=== PATIENT | female | born 1990 ===

== ENCOUNTER 2021-11-07 15:51 | Observation (INO) | payer OTHER ==
[~2021-11-07] VITALS: Ht 167.6 cm; Wt 77.0 kg
--- NOTE | 2021-11-08 08:27 | NUR ---
Pt. states that she is not having any vaginal bleeding this morning. Denies having pain.
--- NOTE | 2021-11-08 17:12 | NUR ---
D/C INSTRUCTIONS GIVEN, ALL QUESTIONS ANSWERED. PT FEELS SAFE GOING HOME. BETAMETHASONE INJ GIVEN.
== END 2021-11-08 17:15 | disposition home or self-care (01) ==
LOC: OBS 15:51 → BC 15:51 → OBS 16:01 → BC 16:04
PROVIDERS: ADMIT Obstetrics & Gynecology
DX: O46.93 Antepartum hemorrhage, unspecified, third trimester (principal); O32.1XX0 Maternal care for breech presentation, not applicable or unspecified; O26.893 Other specified pregnancy related conditions, third trimester; Z67.41 Type O blood, Rh negative; Z3A.28 28 weeks gestation of pregnancy
CPT/HCPCS: J0702; J2791

== ENCOUNTER 2021-11-20 07:01 | Inpatient (IN) | payer OTHER ==
[~2021-11-20] VITALS: Ht 167.6 cm; Wt 77.3 kg
[2021-11-20 08:18] LABS: BASOPHILS ABSOLUTE AUTO 0.04 K/mm3 (0.00-0.23); BASOPHILS PERCENT AUTO 0 % (0-2); EOSINOPHILS PERCENT AUTO 1 % (0-6); Hematocrit 37.4 % (33.0-51.0); Hemoglobin 12.3 g/dL (11.5-16.0); IMMATURE GRAN ABSOLUTE AUTO 0.07 K/mm3 (0.00-0.10); IMMATURE GRAN PERCENT AUTO 1 % (0-1); LYMPHOCYTES ABSOLUTE AUTO 1.48 K/mm3 (0.84-5.20); LYMPHOCYTES PERCENT AUTO 12 % (21-46); MONOCYTES PERCENT AUTO 8 % (4-13); Mean Corpuscular HGB 28.5 pg (26.0-34.0); Mean Corpuscular HGB Conc 32.9 g/dL (31.5-36.5); Mean Corpuscular Volume 87 fL (80-100); Mean Platelet Volume 10.7 fL (9.1-12.4); NEUTROPHILS ABSOLUTE AUTO 9.72 K/mm3 (1.96-9.15); NEUTROPHILS PERCENT AUTO 78 % (41-73); Platelet Count 191 K/mm3 (150-400); RDW Coefficient Variation 13.3 % (11.7-14.2); RDW Standard Deviation 42.5 fL (35.1-46.3); Red Blood Cell Count 4.31 M/mm3 (3.80-5.20); White Blood Cell Count 12.41 K/mm3 (4.00-11.30)
[2021-11-20] MEDS ORDERED: CEPH500 PO (18:05)
[2021-11-20] MEDS ORDERED: PRENATAL TABLE1 EAC2 PO (18:05)
--- NOTE | 2021-11-21 07:00 | NUR ---
REPORT TO PIPO GOMEZ. PT CONTINUES TO HAVE SOME RED SPOTTING, THOUGH DECREASING OVERNIGHT. NO CRAMPING OR CONTRACTIONS REPORTED. PT CONTINUES TO REPORT MOVEMENT.
--- NOTE | 2021-11-21 14:53 | NUR ---
pt up to brp. small amount of pink mucous noted on tissue when wiping. pt reports this is about the same or less than earlier. very small red mucous noted in urine
--- NOTE | 2021-11-21 14:55 | NUR ---
pt denies any cramping
--- NOTE | 2021-11-21 18:10 | NUR ---
pt c/o same low cramping she did at 1545 when put back on efm. no regular u/c noted at that time. pt states low cramping seems to be getting less intense after tylenol. Offered to put pt back on EFM if she felt it was u/c. pt declined stating she doesn't feel any tightening of the uterus. no c/o of increased bloody show or bleeding
--- NOTE | 2021-11-22 08:36 | NUR ---
PT JUST FINISHED BREAKFAST. TO [facility] FOR MONITORING. DENIES ANY CRAMPING OR U/C. DENIES PAIN. PT REPORTS INCREASED BLOODY SHOW LAST NIGHT. DOES THINK IT IS ALSO ABOUT THE TIME SHE HAD BM X 2. TISSUE IN BATHROOM DOES SHOW RED TINGED MUCOUS D/C. PT REPORTS SHE ONLY SEES IT WHEN SHE WIPES. PT WEARING A PAD BUT NEVER SEES ANY BLOOD ON HER PAD. FETUS ACTIVE THIS MORNING.
--- NOTE | 2021-11-22 09:44 | NUR ---
PT NOTED TO HAVE HER FIRST PAD WITH SMALL AMOUNT OF BLOODY SHOW. THIS WAS BEFORE USING BRP. UPDATE TO DR. FAIRCHILD. PLAN TO CONTINUE TO MONITOR AND OBSERVE AND PLAN TO FINISH 5 DAYS OF ANTIBIOTICS FOR TX OF UTI
--- NOTE | 2021-11-22 14:04 | NUR ---
PT CALLED WITH C/O A SMALL AMOUNT OF RED MUCOUS D/C WHEN UP TO BRP. PT DENIES CRAMPING OR ANY U/CS.
--- NOTE | 2021-11-22 17:02 | NUR ---
PT REPORTS NO FURTHER BLOODY SHOW THIS AFTERNOON
--- NOTE | 2021-11-22 17:04 | NUR ---
PT REQUESTS TYLENOL FOR LOW ABD ACHING. DENIES CRAMPING OR UC. REPORTS FETUS ACTIVE AND C/O ROUND LIGAMENT PAIN
[2021-11-23 03:09] LABS: BASOPHILS ABSOLUTE AUTO 0.04 K/mm3 (0.00-0.23); BASOPHILS PERCENT AUTO 0 % (0-2); EOSINOPHILS ABSOLUTE AUTO 0.16 K/mm3 (0.00-0.68); EOSINOPHILS PERCENT AUTO 1 % (0-6); Hematocrit 44.4 % (33.0-51.0); Hemoglobin 14.6 g/dL (11.5-16.0); IMMATURE GRAN ABSOLUTE AUTO 0.04 K/mm3 (0.00-0.10); IMMATURE GRAN PERCENT AUTO 0 % (0-1); LYMPHOCYTES ABSOLUTE AUTO 2.02 K/mm3 (0.84-5.20); LYMPHOCYTES PERCENT AUTO 18 % (21-46); MONOCYTES ABSOLUTE AUTO 1.16 K/mm3 (0.16-1.47); MONOCYTES PERCENT AUTO 10 % (4-13); Mean Corpuscular HGB 28.4 pg (26.0-34.0); Mean Corpuscular HGB Conc 32.9 g/dL (31.5-36.5); Mean Corpuscular Volume 86 fL (80-100); Mean Platelet Volume 10.7 fL (9.1-12.4); NEUTROPHILS ABSOLUTE AUTO 8.11 K/mm3 (1.96-9.15); NEUTROPHILS PERCENT AUTO 70 % (41-73); Platelet Count 204 K/mm3 (150-400); RDW Coefficient Variation 13.2 % (11.7-14.2); RDW Standard Deviation 41.4 fL (35.1-46.3); Red Blood Cell Count 5.14 M/mm3 (3.80-5.20); White Blood Cell Count 11.53 K/mm3 (4.00-11.30)
== END 2021-11-23 04:17 | disposition short-term general hospital (02) | DRG 833 ==
LOC: BC 07:01 → OBS 07:01 → BC 07:03 → OBS 11:12 → BC 11:16
PROVIDERS: ADMIT Obstetrics & Gynecology
DX: O46.8X3 Other antepartum hemorrhage, third trimester (principal); Z3A.30 30 weeks gestation of pregnancy; Z98.890 Other specified postprocedural states; Z79.899 Other long term (current) drug therapy
CPT/HCPCS: 36415; 59025; 85025; 86850; 86870; 86900; 86901; A9270; J0690; J3475; J7120

== ENCOUNTER 2022-11-07 16:58 | Emergency (ER) | payer OTHER ==
[~2022-11-07] VITALS: Ht 167.6 cm; Wt 77.1 kg
[~2022-11-07 16:58] MED LIST: CEPH500 PO; PRENATAL TABLE1 EAC2 PO
[2022-11-07 17:50] LABS: BASOPHILS ABSOLUTE AUTO 0.03 K/mm3 (0.00-0.23); BASOPHILS PERCENT AUTO 0 % (0-2); EOSINOPHILS ABSOLUTE AUTO 0.05 K/mm3 (0.00-0.68); EOSINOPHILS PERCENT AUTO 1 % (0-6); IMMATURE GRAN ABSOLUTE AUTO 0.03 K/mm3 (0.00-0.10); IMMATURE GRAN PERCENT AUTO 0 % (0-1); LYMPHOCYTES ABSOLUTE AUTO 1.97 K/mm3 (0.84-5.20); LYMPHOCYTES PERCENT AUTO 22 % (21-46); MONOCYTES ABSOLUTE AUTO 0.61 K/mm3 (0.16-1.47); MONOCYTES PERCENT AUTO 7 % (4-13); Mean Corpuscular HGB 28.3 pg (26.0-34.0); Mean Corpuscular HGB Conc 32.5 g/dL (31.5-36.5); Mean Corpuscular Volume 87 fL (80-100); Mean Platelet Volume 10.3 fL (9.1-12.4); NEUTROPHILS ABSOLUTE AUTO 6.49 K/mm3 (1.96-9.15); NEUTROPHILS PERCENT AUTO 71 % (41-73); Platelet Count 254 K/mm3 (150-400); RDW Coefficient Variation 13.4 % (11.7-14.2); White Blood Cell Count 9.18 K/mm3 (4.00-11.30)
[2022-11-07 18:27] LABS: Bun/Creatinine Ratio 13.4 (12.0-20.0); Calcium, Blood 9.8 mg/dL (8.5-10.1); Creatinine, Blood 0.6 mg/dL (0.40-1.00); Potassium, Blood 3.6 mmol/L (3.5-5.5)
[2022-11-07 19:06] VITALS: BP 122/86
[2022-11-07 19:29] LABS: Source, Urine Clean Catch
[2022-11-07 19:36] LABS: Appearance, Urine Clear (Clear); Bilirubin, Urine Neg (Neg); Blood, Urine 5+ (Neg); Glucose Qualitative, Urine Neg (Neg); Ketones, Urine Neg (Neg); Leukocyte Esterase, Urine Neg (Neg); Nitrite, Urine Neg (Neg); Protein, Urine Neg (Neg); Specific Gravity, Urine 1.015 (1.003-1.022); Urobilinogen, Urine NORM (Normal)
[2022-11-07 19:47] LABS: Color, Urine Pale Yellow (P-Yellow)
[2022-11-07 19:48] LABS: Bacteria Few /hpf; Squamous Epithelial Cells Few /hpf (Few); White Blood Cells, Urine 0-2 /hpf (0-5)
== END 2022-11-07 21:33 | disposition home or self-care (01) ==
LOC: ER 16:58
PROVIDERS: Physician Assistant
DX: O20.0 Threatened abortion (principal); Z3A.13 13 weeks gestation of pregnancy; Z79.899 Other long term (current) drug therapy
CPT/HCPCS: 76801; 76817; 80048; 81001; 84702; 85025; 96372; 99284-25; J2791

== ENCOUNTER 2024-08-06 07:26 | Inpatient (IN) | payer OTHER ==
[~2024-08-06] VITALS: Ht 167.6 cm; Wt 86.0 kg
[2024-08-06] VITALS (54 sets, daily range): BP systolic 83–139; BP diastolic 42–80
[2024-08-06] MEDS ORDERED: Oxytocin 10 Unit / ML Vial IM PRN (07:55)
[2024-08-06] MEDS ORDERED: FentaNYL 2mcg/ml-Bup 0.1% Epd 250 ML EPI PRN (07:55)
[2024-08-06] MEDS ORDERED: Acetaminophen 500 MG Tab PO PRN (07:55)
[2024-08-06] MEDS ORDERED: Misoprostol 200 MCG Tab PR PRN ×2 (07:55→14:05)
[2024-08-06] MEDS ORDERED: Misoprostol 200 MCG Tab BC PRN (07:55)
[2024-08-06] MEDS ORDERED: ePHEDrine Sulfate 50 MG/ML 1ML Injection XX PRN (07:55)
[2024-08-06] MEDS ORDERED: Calcium Carbonate 500 MG Tab Chew PO SCH (07:55)
[2024-08-06] MEDS ORDERED: Methylergonovine Maleate 0.2MG / ML 1ML Amp IM PRN ×2 (07:55→14:05)
[2024-08-06] MEDS ORDERED: OXYTOCIN/RINGER'S LACTATE 500 ML IV PRN (07:55)
[2024-08-06] MEDS ORDERED: Lactated Ringer's 1,000 ML IV SCH ×3 (07:55→14:05)
[2024-08-06] MEDS ORDERED: Carboprost Tromethamine 250 MCG/ML 1ML Amp IM PRN (07:55)
[2024-08-06] MEDS ORDERED: Lactated Ringer's 1,000 ML IV PRN (07:55)
[2024-08-06] MEDS ORDERED: Ondansetron HCl 2 MG / ML 2ML Vial IV PRN (07:55)
[2024-08-06] MEDS ORDERED: Lactated Ringer's 1,000 ML IV ONE (08:00)
[2024-08-06] MEDS ORDERED: OXYTOCIN/RINGER'S LACTATE 500 ML IV ONE (08:00)
[2024-08-06] MEDS ORDERED: Tranexamic Acid 100 ML IV SCH (08:10)
[2024-08-06 08:21] LABS: BASOPHILS ABSOLUTE AUTO 0.03 K/mm3 (0.00-0.23); BASOPHILS PERCENT AUTO 0 % (0-2); EOSINOPHILS ABSOLUTE AUTO 0.03 K/mm3 (0.00-0.68); EOSINOPHILS PERCENT AUTO 0 % (0-6); Hematocrit 41.3 % (33.0-51.0); Hemoglobin 13.9 g/dL (11.5-16.0); IMMATURE GRAN ABSOLUTE AUTO 0.06 K/mm3 (0.00-0.10); IMMATURE GRAN PERCENT AUTO 0 % (0-1); LYMPHOCYTES ABSOLUTE AUTO 1.68 K/mm3 (0.84-5.20); LYMPHOCYTES PERCENT AUTO 12 % (21-46); MONOCYTES ABSOLUTE AUTO 1.19 K/mm3 (0.16-1.47); MONOCYTES PERCENT AUTO 8 % (4-13); Mean Corpuscular HGB Conc 33.7 g/dL (31.5-36.5); Mean Corpuscular Volume 86 fL (80-100); Mean Platelet Volume 11.5 fL (9.1-12.4); NEUTROPHILS ABSOLUTE AUTO 11.67 K/mm3 (1.96-9.15); NEUTROPHILS PERCENT AUTO 80 % (41-73); Platelet Count 192 K/mm3 (150-400); RDW Coefficient Variation 14.3 % (11.7-14.2); RDW Standard Deviation 44.9 fL (35.1-46.3); Red Blood Cell Count 4.79 M/mm3 (3.80-5.20); White Blood Cell Count 14.66 K/mm3 (4.00-11.30)
[2024-08-06] MEDS ORDERED: Rho(D) Immune Globulin 300 MCG / SYR IM ONE (14:00)
[2024-08-06] MEDS ORDERED: Acetaminophen 325 MG TABLET PO PRN (14:00)
[2024-08-06] MEDS ORDERED: Lanolin Cream TOP PRN (14:00)
[2024-08-06] MEDS ORDERED: Benzocaine Topical Anesthetic Spray 60GM TOP PRN (14:05)
[2024-08-06] MEDS ORDERED: Docusate Sodium 100 MG Cap PO PRN (14:05)
[2024-08-06] MEDS ORDERED: OXYTOCIN/RINGER'S LACTATE 500 ML IV SCH (14:05)
[2024-08-06] MEDS ORDERED: Ketorolac Tromethamine 30mg Vial IV PRN (14:05)
[2024-08-06] MEDS ORDERED: Witch Hazel/Glycerin PADS TOP PRN (14:10)
[2024-08-06] MEDS ORDERED: Rho(D) Immune Globulin 300 MCG / SYR IV ONE (20:45)
[2024-08-07 03:50] VITALS: BP 117/60
[2024-08-07 08:16] VITALS: BP 113/55
[2024-08-07] MEDS ORDERED: Prenatal Vit/FE Fumarate/FA 1 Tab PO SCH (09:00)
[2024-08-07] MEDS ORDERED: Ibuprofen 400 MG Tab PO PRN ×2 (10:20→14:00)
[2024-08-07] MEDS ORDERED: Lidocaine 4% 1 Patch TOP PRN (10:50)
[2024-08-07] MEDS ORDERED: IBUP800 PO (11:35)
[2024-08-07 14:36] VITALS: BP 118/59
--- NOTE | 2024-08-07 14:41 | NUR ---
DISCHARGE EXPERIENCED PARENTS AND READY TO DC HOME. VERBALIZES UNDERSTANDING OF DC INSTRUCTIONS AND FOLLOW UP APPOINTMENTS. PUMPING AND BOTTLE FEEDING VERY WELL. VSS. AFEBRILE. LOCHIA SCANT. NO QUESTIONS OR CONCERNS. DC HOME STABLE.
== END 2024-08-07 15:00 | disposition home or self-care (01) | DRG 807 ==
LOC: OBS 07:26 → BC 07:29 → OBS 07:46 → BC 07:47
PROVIDERS: ADMIT Obstetrics & Gynecology
PROC: 10E0XZZ Delivery of Products of Conception, External Approach (ICD-10-PCS; principal; 2024-08-06)
PROC: 3E0R3BZ Introduction of Anesthetic Agent into Spinal Canal, Percutaneous Approach (ICD-10-PCS; 2024-08-06)
PROC: 00HU33Z Insertion of Infusion Device into Spinal Canal, Percutaneous Approach (ICD-10-PCS; 2024-08-06)
PROC: 10907ZC Drainage of Amniotic Fluid, Therapeutic from Products of Conception, Via Natural or Artificial Opening (ICD-10-PCS; 2024-08-06)
PROC: 3E0334Z Introduction of Serum, Toxoid and Vaccine into Peripheral Vein, Percutaneous Approach (ICD-10-PCS; 2024-08-06)
DX: O99.892 Other specified diseases and conditions complicating childbirth (principal); Z37.0 Single live birth; O69.81X0 Labor and delivery complicated by cord around neck, without compression, not applicable or unspecified; R03.0 Elevated blood-pressure reading, without diagnosis of hypertension; O71.89 Other specified obstetric trauma; O26.893 Other specified pregnancy related conditions, third trimester; Z67.41 Type O blood, Rh negative; Z3A.39 39 weeks gestation of pregnancy; Z86.79 Personal history of other diseases of the circulatory system; Z87.898 Personal history of other specified conditions
CPT/HCPCS: 36415; 85025; 85460; 86850; 86870; 86900; 86901; 86922; A9270; J1885; J2590; J2791; J7120